=== PATIENT | male | born 1950 | race Caucasian/White ===

== ENCOUNTER 2018-10-20 10:21 | Inpatient (IN) | payer MEDICARE, OTHER ==
[2018-10-20 10:48] LABS: ADD MAN DIFF? NO
[2018-10-20 10:52] LABS: BASOPHIL # 0.1 10^3/ul (0.0-0.1); BASOPHILS % 0.8 % (0.0-2.0); EOSINOPHILS # 0.1 10^3/ul (0.0-0.5); EOSINOPHILS % 2.1 % (0.0-7.0); HEMATOCRIT 45.5 % (42.0-52.0); HEMOGLOBIN 15.4 g/dl (14.0-18.0); LYMPHOCYTES # 2.1 10^3/ul (0.8-2.9); LYMPHOCYTES % 31.6 % (15.0-51.0); MEAN CORPUSCULAR HEMOGLOBIN 30.3 pg (29.0-33.0); MEAN CORPUSCULAR HGB CONC 33.8 g/dl (32.0-37.0); MEAN CORPUSCULAR VOLUME 89.4 fl (82.0-101.0); MEAN PLATELET VOLUME 9.2 fl (7.4-10.4); MONOCYTE # 0.5 10^3/ul (0.3-0.9); MONOCYTES % 7.3 % (0.0-11.0); NEUTROPHIL # 3.8 10^3/ul (1.6-7.5); NEUTROPHILS % 57.7 % (39.0-77.0); PLATELET COUNT 206 10^3/UL (140-415); RED BLOOD COUNT 5.09 10^6/ul (4.70-6.10); RED CELL DISTRIBUTION WIDTH 12.7 % (11.5-14.5)
[2018-10-20 10:52] LABS: WHITE BLOOD COUNT 6.6 10^3/ul (4.8-10.8)
[2018-10-20 11:11] LABS: ANION GAP 9 (5-13); BLOOD UREA NITROGEN 21 mg/dl (7-20); CALCIUM 9.6 mg/dl (8.4-10.2); CARBON DIOXIDE 26 mmol/L (21-31); CHLORIDE 107 mmol/L (97-110); CREATININE 0.95 mg/dl (0.61-1.24); Estimated GFR > 60 mL/min (>60); GLUCOSE 105 mg/dl (70-220); POTASSIUM 4.3 mmol/L (3.5-5.1); SODIUM 142 mmol/L (135-144)
[2018-10-20 11:32] LABS: TROPONIN-I 0.133 ng/ml (0.000-0.120)
[2018-10-20] MEDS: NITROGLYCERIN 2% 1 GM OINT PKT TD (11:46)
[2018-10-20] MEDS ORDERED: ONDANSETRON 4 MG INJ IV ×2 (12:00→15:30)
[2018-10-20] MEDS ORDERED: ACETAMINOPHEN 325 MG TAB PO ×2 (12:00→15:30)
[2018-10-20] MEDS ORDERED: morphine 2 MG INJ IV (15:30)
[2018-10-20] MEDS ORDERED: LORAZEPAM 0.5 MG TAB PO (15:30)
[2018-10-20] MEDS ORDERED: ZOLPIDEM 5 MG TAB PO (15:30)
[2018-10-20] MEDS ORDERED: NITROGLYCERIN (SL) 0.4 MG TAB SL (15:30)
[2018-10-20 16:39] LABS: CREATINE KINASE 46 IU/L (23-200); INR 1.07; PARTIAL THROMBOPLASTIN TIME 26.3 Sec (23.0-35.0); PT RATIO 1.1
[2018-10-20 16:53] LABS: CK INDEX 1.2; CK-MB 0.54 ng/ml (0.0-2.4); TROPONIN-I 0.097 ng/ml (0.000-0.120)
[2018-10-20] MEDS: DOCUSATE SODIUM 100 MG CAP PO (18:04)
[2018-10-20] MEDS: SOD CHLORIDE 0.9% 1,000 ML IV (18:18)
[2018-10-20] MEDS: HEPARIN 5,000 UNIT/1 ML VIAL SC ×2 (18:38→22:58)
[2018-10-20] MEDS ORDERED: FAMOTIDINE 20 MG TAB PO (21:00)
[2018-10-20] MEDS: ATORVASTATIN 20 MG TAB PO (22:43)
[2018-10-20] MEDS: GABAPENTIN 100 MG CAP PO (22:43)
[2018-10-20] MEDS: METOPROLOL 25 MG TAB PO (22:51)
[2018-10-20 23:18] LABS: CREATINE KINASE 35 IU/L (23-200)
[2018-10-20 23:32] LABS: CK INDEX 1.4; CK-MB 0.49 ng/ml (0.0-2.4); TROPONIN-I 0.109 ng/ml (0.000-0.120)
[2018-10-21] MEDS: DOCUSATE SODIUM 100 MG CAP PO ×2 (03:30→17:40)
[2018-10-21 06:12] LABS: ADD MAN DIFF? NO
[2018-10-21] MEDS: PANTOPRAZOLE (EC) 40 MG TAB PO (06:24)
[2018-10-21 06:27] LABS: WHITE BLOOD COUNT 7.2 10^3/ul (4.8-10.8)
[2018-10-21 06:27] LABS: BASOPHIL # 0.1 10^3/ul (0.0-0.1); BASOPHILS % 0.7 % (0.0-2.0); EOSINOPHILS # 0.3 10^3/ul (0.0-0.5); EOSINOPHILS % 3.7 % (0.0-7.0); HEMATOCRIT 40.1 % (42.0-52.0); HEMOGLOBIN 13.7 g/dl (14.0-18.0); LYMPHOCYTES # 2.6 10^3/ul (0.8-2.9); LYMPHOCYTES % 35.7 % (15.0-51.0); MEAN CORPUSCULAR HEMOGLOBIN 30.6 pg (29.0-33.0); MEAN CORPUSCULAR HGB CONC 34.2 g/dl (32.0-37.0); MEAN CORPUSCULAR VOLUME 89.7 fl (82.0-101.0); MEAN PLATELET VOLUME 9.4 fl (7.4-10.4); MONOCYTE # 0.6 10^3/ul (0.3-0.9); MONOCYTES % 7.8 % (0.0-11.0); NEUTROPHIL # 3.7 10^3/ul (1.6-7.5); NEUTROPHILS % 51.4 % (39.0-77.0); PLATELET COUNT 196 10^3/UL (140-415); RED BLOOD COUNT 4.47 10^6/ul (4.70-6.10); RED CELL DISTRIBUTION WIDTH 12.7 % (11.5-14.5)
[2018-10-21] MEDS: HEPARIN 5,000 UNIT/1 ML VIAL SC ×3 (06:35→22:25)
[2018-10-21 06:44] LABS: HEMOGLOBIN A1C 5.2 % (0-5.9)
[2018-10-21 07:02] LABS: ALANINE AMINOTRANSFERASE 37 IU/L (13-69); ALBUMIN 3.7 g/dl (3.3-4.9); ALKALINE PHOSPHATASE 38 IU/L (42-121); ANION GAP 8 (5-13); ASPARTATE AMINO TRANSFERASE 26 IU/L (15-46); BILIRUBIN,INDIRECT 0.4 mg/dl (0-1.1); BILIRUBIN,TOTAL 0.4 mg/dl (0.2-1.3); BLOOD UREA NITROGEN 18 mg/dl (7-20); CARBON DIOXIDE 24 mmol/L (21-31); CHLORIDE 109 mmol/L (97-110); CHOL/HDL RATIO 6.6 RATIO; CHOLESTEROL 147 mg/dl (100-200); CREATININE 0.93 mg/dl (0.61-1.24); Estimated GFR > 60 mL/min (>60); GLUCOSE 97 mg/dl (70-220); HDL CHOLESTEROL 22 mg/dl (30-78); LDL CHOLESTEROL,CALCULATED 69 mg/dl; POTASSIUM 3.8 mmol/L (3.5-5.1); SODIUM 141 mmol/L (135-144); TOTAL PROTEIN 6.2 g/dl (6.1-8.1); TRIGLYCERIDES 280 mg/dl (0-149)
[2018-10-21] MEDS: FENOFIBRATE 145 MG TAB PO (08:12)
[2018-10-21] MEDS: ASPIRIN 81 MG TAB PO (08:12)
[2018-10-21] MEDS: HYDROCHLOROTHIAZIDE 12.5 MG CAP PO (08:13)
[2018-10-21] MEDS: METOPROLOL 25 MG TAB PO ×2 (08:13→21:00)
[2018-10-21] MEDS: GABAPENTIN 100 MG CAP PO ×3 (08:14→22:10)
[2018-10-21] MEDS: LOSARTAN 50 MG TAB PO (08:14)
[2018-10-21] MEDS: SUCRALFATE (100 MG/ML) 10ML CUP PO ×3 (13:32→22:08)
[2018-10-21] MEDS: ATORVASTATIN 20 MG TAB PO (22:09)
[2018-10-22] MEDS: DOCUSATE SODIUM 100 MG CAP PO ×2 (03:30→16:07)
[2018-10-22 06:08] LABS: ADD MAN DIFF? NO
[2018-10-22] MEDS: PANTOPRAZOLE (EC) 40 MG TAB PO (06:18)
[2018-10-22 06:23] LABS: WHITE BLOOD COUNT 6.2 10^3/ul (4.8-10.8)
[2018-10-22 06:23] LABS: BASOPHIL # 0.1 10^3/ul (0.0-0.1); BASOPHILS % 0.8 % (0.0-2.0); EOSINOPHILS # 0.2 10^3/ul (0.0-0.5); EOSINOPHILS % 3.1 % (0.0-7.0); HEMATOCRIT 42.1 % (42.0-52.0); HEMOGLOBIN 14.3 g/dl (14.0-18.0); LYMPHOCYTES # 2.3 10^3/ul (0.8-2.9); LYMPHOCYTES % 36.6 % (15.0-51.0); MEAN CORPUSCULAR HEMOGLOBIN 30.2 pg (29.0-33.0); MEAN PLATELET VOLUME 9.5 fl (7.4-10.4); MONOCYTE # 0.5 10^3/ul (0.3-0.9); MONOCYTES % 8.6 % (0.0-11.0); NEUTROPHIL # 3.1 10^3/ul (1.6-7.5); NEUTROPHILS % 50.2 % (39.0-77.0); PLATELET COUNT 199 10^3/UL (140-415); RED BLOOD COUNT 4.73 10^6/ul (4.70-6.10); RED CELL DISTRIBUTION WIDTH 12.5 % (11.5-14.5)
[2018-10-22] MEDS: HEPARIN 5,000 UNIT/1 ML VIAL SC ×3 (06:27→21:37)
[2018-10-22 06:50] LABS: ANION GAP 9 (5-13); BLOOD UREA NITROGEN 18 mg/dl (7-20); CALCIUM 9.4 mg/dl (8.4-10.2); CARBON DIOXIDE 24 mmol/L (21-31); CHLORIDE 109 mmol/L (97-110); Estimated GFR > 60 mL/min (>60); GLUCOSE 105 mg/dl (70-220); MAGNESIUM 2.1 mg/dl (1.7-2.5); PHOSPHORUS 2.8 mg/dl (2.5-4.9); POTASSIUM 4.1 mmol/L (3.5-5.1); SODIUM 142 mmol/L (135-144)
[2018-10-22] MEDS: GABAPENTIN 100 MG CAP PO ×3 (08:46→21:11)
[2018-10-22] MEDS: SUCRALFATE (100 MG/ML) 10ML CUP PO ×4 (08:46→21:11)
[2018-10-22] MEDS: FENOFIBRATE 145 MG TAB PO (08:46)
[2018-10-22] MEDS: METOPROLOL 25 MG TAB PO ×2 (08:47→21:12)
[2018-10-22] MEDS: HYDROCHLOROTHIAZIDE 12.5 MG CAP PO (08:47)
[2018-10-22] MEDS: ASPIRIN 81 MG TAB PO (08:47)
[2018-10-22] MEDS: LOSARTAN 50 MG TAB PO (08:48)
[2018-10-22] MEDS ORDERED: hydrALAzine 20 MG INJ IV (11:00)
[2018-10-22] MEDS: REGADENOSON 0.4 MG/5 ML SYG (12:45)
[2018-10-22] MEDS: ATORVASTATIN 80 MG TAB PO (21:11)
[2018-10-23] MEDS: DOCUSATE SODIUM 100 MG CAP PO (03:29)
[2018-10-23] MEDS: PANTOPRAZOLE (EC) 40 MG TAB PO (05:09)
[2018-10-23] MEDS: HEPARIN 5,000 UNIT/1 ML VIAL SC (05:16)
[2018-10-23 05:17] LABS: ADD MAN DIFF? NO
[2018-10-23 05:24] LABS: BASOPHIL # 0.1 10^3/ul (0.0-0.1); BASOPHILS % 0.7 % (0.0-2.0); EOSINOPHILS # 0.2 10^3/ul (0.0-0.5); EOSINOPHILS % 3.4 % (0.0-7.0); HEMATOCRIT 42.7 % (42.0-52.0); HEMOGLOBIN 14.6 g/dl (14.0-18.0); LYMPHOCYTES # 2.5 10^3/ul (0.8-2.9); LYMPHOCYTES % 35.6 % (15.0-51.0); MEAN CORPUSCULAR HEMOGLOBIN 30.5 pg (29.0-33.0); MEAN CORPUSCULAR HGB CONC 34.2 g/dl (32.0-37.0); MEAN CORPUSCULAR VOLUME 89.3 fl (82.0-101.0); MEAN PLATELET VOLUME 9.3 fl (7.4-10.4); MONOCYTE # 0.6 10^3/ul (0.3-0.9); MONOCYTES % 8.9 % (0.0-11.0); NEUTROPHIL # 3.6 10^3/ul (1.6-7.5); NEUTROPHILS % 50.8 % (39.0-77.0); PLATELET COUNT 201 10^3/UL (140-415); RED BLOOD COUNT 4.78 10^6/ul (4.70-6.10); RED CELL DISTRIBUTION WIDTH 12.6 % (11.5-14.5)
[2018-10-23 05:24] LABS: WHITE BLOOD COUNT 7.1 10^3/ul (4.8-10.8)
[2018-10-23 06:45] LABS: ANION GAP 10 (5-13); BLOOD UREA NITROGEN 19 mg/dl (7-20); CALCIUM 9.4 mg/dl (8.4-10.2); CARBON DIOXIDE 23 mmol/L (21-31); CHLORIDE 108 mmol/L (97-110); CREATININE 1.01 mg/dl (0.61-1.24); Estimated GFR > 60 mL/min (>60); GLUCOSE 112 mg/dl (70-220); MAGNESIUM 2.2 mg/dl (1.7-2.5); PHOSPHORUS 3.1 mg/dl (2.5-4.9); POTASSIUM 3.8 mmol/L (3.5-5.1); SODIUM 141 mmol/L (135-144)
[2018-10-23] MEDS: LOSARTAN 50 MG TAB PO (08:21)
[2018-10-23] MEDS: METOPROLOL 25 MG TAB PO (08:21)
[2018-10-23] MEDS: SUCRALFATE (100 MG/ML) 10ML CUP PO (08:22)
[2018-10-23] MEDS: FENOFIBRATE 145 MG TAB PO (08:22)
[2018-10-23] MEDS: GABAPENTIN 100 MG CAP PO (08:22)
[2018-10-23] MEDS: ASPIRIN 81 MG TAB PO (08:22)
== END 2018-10-23 12:56 | disposition home or self-care (01) | DRG 282 ==
LOC: E/R 10:21 → 6WM 11:41
DX: I21.4 Non-ST elevation (NSTEMI) myocardial infarction (principal); I10 Essential (primary) hypertension; E78.5 Hyperlipidemia, unspecified; F17.200 Nicotine dependence, unspecified, uncomplicated; G62.9 Polyneuropathy, unspecified; E55.9 Vitamin D deficiency, unspecified; K21.9 Gastro-esophageal reflux disease without esophagitis; M19.90 Unspecified osteoarthritis, unspecified site
CPT/HCPCS: 36415; 71045; 78452; 80048; 80061; 80076; 82550; 82553; 83036; 83735; 84100; 84443; 84484; 85025; 85610; 85730; 93005; 93017; 93306; 99285-25

== ENCOUNTER 2018-10-25 20:47 | Emergency (ER) | payer MEDICARE, OTHER ==
[2018-10-25 21:12] LABS: WHITE BLOOD COUNT 8.1 10^3/ul (4.8-10.8)
[2018-10-25 21:12] LABS: ADD MAN DIFF? NO; BASOPHIL # 0.1 10^3/ul (0.0-0.1); BASOPHILS % 0.7 % (0.0-2.0); EOSINOPHILS # 0.3 10^3/ul (0.0-0.5); EOSINOPHILS % 3.1 % (0.0-7.0); HEMOGLOBIN 14.2 g/dl (14.0-18.0); LYMPHOCYTES # 2.7 10^3/ul (0.8-2.9); LYMPHOCYTES % 33.5 % (15.0-51.0); MEAN CORPUSCULAR HEMOGLOBIN 30.5 pg (29.0-33.0); MEAN CORPUSCULAR HGB CONC 34.6 g/dl (32.0-37.0); MEAN PLATELET VOLUME 9.2 fl (7.4-10.4); MONOCYTE # 0.6 10^3/ul (0.3-0.9); MONOCYTES % 7.4 % (0.0-11.0); NEUTROPHIL # 4.5 10^3/ul (1.6-7.5); NEUTROPHILS % 54.8 % (39.0-77.0); PLATELET COUNT 202 10^3/UL (140-415); RED BLOOD COUNT 4.66 10^6/ul (4.70-6.10); RED CELL DISTRIBUTION WIDTH 12.9 % (11.5-14.5)
[2018-10-25 21:38] LABS: ALANINE AMINOTRANSFERASE 55 IU/L (13-69); ALBUMIN 4.3 g/dl (3.3-4.9); ALBUMIN/GLOBULIN RATIO 1.34; ALKALINE PHOSPHATASE 47 IU/L (42-121); ANION GAP 9 (5-13); ASPARTATE AMINO TRANSFERASE 36 IU/L (15-46); BILIRUBIN,INDIRECT 0.4 mg/dl (0-1.1); BILIRUBIN,TOTAL 0.4 mg/dl (0.2-1.3); BLOOD UREA NITROGEN 26 mg/dl (7-20); CALCIUM 9.2 mg/dl (8.4-10.2); CARBON DIOXIDE 24 mmol/L (21-31); CHLORIDE 109 mmol/L (97-110); CREATININE 1.49 mg/dl (0.61-1.24); Estimated GFR 47 mL/min (>60); GLUCOSE 112 mg/dl (70-220); SODIUM 142 mmol/L (135-144); TOTAL PROTEIN 7.5 g/dl (6.1-8.1)
[2018-10-25 21:46] LABS: B-TYPE NATRIURETIC PEPTIDE 121 PG/ML (0-125)
[2018-10-25 21:51] LABS: TROPONIN-I < 0.012 ng/ml (0.000-0.120)
[2018-10-25 23:34] LABS: TROPONIN-I < 0.012 ng/ml (0.000-0.120)
== END 2018-10-26 00:08 | disposition home or self-care (01) ==
LOC: E/R 10-26 00:08
DX: R07.9 Chest pain, unspecified (principal); I10 Essential (primary) hypertension; F17.210 Nicotine dependence, cigarettes, uncomplicated; Z79.82 Long term (current) use of aspirin
CPT/HCPCS: 36415; 71045; 80053; 83880; 84484; 85025; 93005; 99285-25